=== PATIENT | female | born 1950 ===

== ENCOUNTER 2016-07-14 15:59 | Emergency (ER) | payer BC ==
[2016-07-14] MEDS ORDERED: ACETAMINOPHEN 325 MG TABLET ONE (19:35)
== END 2016-07-14 19:53 | disposition home or self-care (01) ==
LOC: ED 15:59
DX: J11.1 Influenza due to unidentified influenza virus with other respiratory manifestations (principal)
CPT/HCPCS: 99282 ×2; A9270